=== PATIENT | female | born 1995 | race Two or more races ===

== ENCOUNTER 2020-04-25 05:30 | Emergency (ER) | payer OTHER ==
[~2020-04-25] VITALS: Ht 167.6 cm; Wt 97.5 kg
[2020-04-25] MEDS ORDERED: NIFEDIPINE20 MG (05:43)
== END 2020-04-25 12:24 | disposition home or self-care (01) ==
LOC: ER 05:30 → CPU-OBS 05:55 → ER 05:55
DX: O13.2 Gestational [pregnancy-induced] hypertension without significant proteinuria, second trimester (principal); O26.892 Other specified pregnancy related conditions, second trimester; R00.2 Palpitations; R00.0 Tachycardia, unspecified; Z3A.20 20 weeks gestation of pregnancy
CPT/HCPCS: G0378; G0379; 93005